=== PATIENT | female | born 1935 | race Caucasian/White ===

== ENCOUNTER 2017-03-08 14:17 | Observation (INO) | payer OTHER ==
[~2017-03-08] VITALS: Ht 157.5 cm; Wt 58.5 kg
--- NOTE | ~2017-03-08 | EKG ---
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
[~2017-03-08 14:17] MED LIST: ADVAIR 250-501 EACH INH; ALPRAZOLAM 0.0.25 M1 PO; CLORAZEPATE DI7.5 M1 PO; ENALAPRIL MALEA10 M1 PO; FLONASE 0.05%50 MCG INH; LEVOTHYROXIN0.025 MG; NIFEDIPINE ER60 M1 PO; NORCO 5-325 TA1 EACH PO; NORFLEX100 MG PO; PAROXETINE HCL20 MG PO; PROAIR HFA8.5 GM; PROPRANOLOL 20M20 M1 PO; TRAVATAN Z5 ML; XOPENEX1.25 MG/3
[2017-03-08 14:23] VITALS: BP 218/76
[2017-03-08 14:52] LABS: ABSOLUTE NEUTROPHILS 5.4 thou/uL (1.4-8.2); BASOPHILS 0.6 % (0.0-2.0); HEMATOCRIT 42.7 % (37.0-47.0); HEMOGLOBIN 14.7 gm/dL (12.0-15.0); LYMPHOCYTES 21.9 % (24.0-44.0); MANUAL DIFF NO; MCH 31.2 pg (26.0-34.0); MCHC 34.4 g/dL (28.0-37.0); MCV 90.7 fL (80.0-100.0); PLATELET COUNT 217 thou/uL (150-400); POLYS 69.5 % (36.0-66.0); RBC 4.71 mil/uL (4.20-5.00); RDW 13.5 % (10.5-14.5); WBC 7.8 thou/uL (4.0-11.0)
[2017-03-08] MEDS ORDERED: ASPIRIN325 PO (15:09)
[2017-03-08] MEDS ORDERED: CALCIUM 600 +1 EAC1 PO (15:11)
[2017-03-08] MEDS ORDERED: MUCINEX TA600 MG/TA2 PO (15:12)
[2017-03-08] MEDS ORDERED: PRIMIDONE50 MG PO (15:12)
[2017-03-08] MEDS ORDERED: PRAVACHOL40 MG PO (15:12)
[2017-03-08] MEDS ORDERED: SPIRIVA INH (15:13)
[2017-03-08 15:15] LABS: ALBUMIN 3.8 g/dL (3.4-5.0); ALKALINE PHOSPHATASE 110 U/L (46-116); ANION GAP 6 mmol/L (7-16); BUN 14 mg/dL (7-18); CALCIUM 9.9 mg/dL (8.5-10.1); CHLORIDE 101 mmol/L (98-107); CO2 32 mmol/L (21-32); CREATININE 0.7 mg/dL (0.6-1.0); GLUCOSE 79 mg/dL (74-106); POTASSIUM 3.5 mmol/L (3.5-5.1); SGOT 34 U/L (15-37); SGPT 30 U/L (30-65); SODIUM 139 mmol/L (136-145); TOTAL BILIRUBIN 0.5 mg/dL (<0.1-1.0); TOTAL PROTEIN 7.1 g/dL (6.4-8.2); TROPONIN-I < 0.04 ng/mL (<0.04-0.07)
[2017-03-08 17:48] VITALS: BP 140/47
[2017-03-08 18:53] VITALS: BP 166/67
[2017-03-08 20:00] VITALS: BP 147/50
[2017-03-09] VITALS: BP 166/53
[2017-03-09] MEDS ORDERED: XALATAN2.5 ML OPHTHALMIC (02:09)
[2017-03-09] MEDS ORDERED: ALBUTEROL INH (02:13)
[2017-03-09 04:00] VITALS: BP 172/54
[2017-03-09 05:42] LABS: HEMATOCRIT 37.7 % (37.0-47.0); HEMOGLOBIN 13.1 gm/dL (12.0-15.0); MCH 31.5 pg (26.0-34.0); MCHC 34.7 g/dL (28.0-37.0); MCV 90.7 fL (80.0-100.0); RBC 4.16 mil/uL (4.20-5.00); RDW 13.7 % (10.5-14.5); WBC 5.2 thou/uL (4.0-11.0)
[2017-03-09 05:44] LABS: CALCIUM 9.2 mg/dL (8.5-10.1); CREATININE 0.7 mg/dL (0.6-1.0); POTASSIUM 3.1 mmol/L (3.5-5.1)
[2017-03-09 07:52] VITALS: BP 142/51
[2017-03-09 08:34] VITALS: BP 128/49
[2017-03-09 13:04] VITALS: BP 128/49
== END 2017-03-09 13:30 | disposition home or self-care (01) ==
LOC: EROBS 17:03 → 3N 18:45
PROVIDERS: Hospitalist; Physician Assistant
DX: I16.0 Hypertensive urgency (principal); J44.9 Chronic obstructive pulmonary disease, unspecified; E78.5 Hyperlipidemia, unspecified; E03.9 Hypothyroidism, unspecified; R42 Dizziness and giddiness; F41.9 Anxiety disorder, unspecified; M19.90 Unspecified osteoarthritis, unspecified site; G25.0 Essential tremor; Z72.0 Tobacco use
CPT/HCPCS: 23019; 23031

== ENCOUNTER 2017-03-22 15:29 | Inpatient (IN) | payer OTHER ==
[~2017-03-22] VITALS: Ht 157.5 cm; Wt 57.2 kg
--- NOTE | ~2017-03-22 | HC ---
[facility] [place] [address] CONSULTATION Name: ALVA REGALADO Room #: 304-P [facility] IN M.R.#: [id number] Admission: 03/22/17 Attend Phys: Agustin Coronel MD Discharge: Date of : 35 Report #: [id number] THIS REPORT FOR: //name// CC: Agustin Coronel Talat Akkulugari DATE OF SERVICE: 03/24/2017 DATE OF SERVICE: 03/24/2017. REASON FOR CONSULTATION: Possible exacerbation of chronic obstructive pulmonary disease. IMPRESSION: 1. Possible exacerbation of chronic obstructive pulmonary disease. 2. Question congestive heart failure. 3. Hyponatremia. 4. Hypertension. 5. Tobacco use. 6. Tremor. 7. History of hypothyroidism. PLAN: Agree with current therapy. We will check labs. We will check echocardiogram, may consider evaluation for obstructive sleep apnea. We will follow closely with you. Dr. Painter will follow up with her tomorrow as her name was given by her new primary. HISTORY OF PRESENT ILLNESS: An 81-year-old female, admitted with headache and weakness and found to have a sodium of 121, treated with IV fluids, that improved; however, has developed shortness of breath since that time and wheeze. She denies aspiration. She denies fever, chills or sweats. PAST MEDICAL HISTORY: ALLERGIES: Seasonal and to some foods. PAST SURGICAL HISTORY: Cataract surgery, fusion L1-L3 secondary to fall in 1970s, hysterectomy, left breast surgery. FAMILY HISTORY: Positive for tremor, no early chronic obstructive pulmonary disease. SOCIAL HISTORY: Positive tobacco. 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 She was a at a young age. [facility] [address] [place] [address] CONSULTATION Name: ALVA REGALADO Room #: 304-P [facility] IN .R.#: [id number] Admission: 03/22/17 Attend Phys: Agustin Coronel MD Discharge: Date of : 35 Report #: [id number] REVIEW OF SYSTEMS: Positive headache, dizziness, weakness, hypertension, history of asthma, as a child, has been worked up for sleep apnea, cannot breath well through her nose, has been on 3 liters oxygen, does have some insomnia. 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 Denies jamel dysuria. ALLERGIES TO ADHESIVES, CAFFEINE, EPHEDRINE, MENTHOL AND NICOTINE PATCH. MEDICATIONS: Included alprazolam, clorazepate, , potassium, hydrochlorothiazide, levothyroxine, albuterol, Xopenex, paroxetine, nifedipine, propranolol, fluticasone, Advair 250, Caltrate, Mucinex, Pravachol, primidone. PHYSICAL EXAMINATION: VITAL SIGNS: Temperature 98, pulse 60, respirations 22, blood pressure 152/66. EYES: Negative icterus. NECK: Negative JVD. LUNGS: Showed wheeze bilaterally. HEART: Regular. ABDOMEN: Bowel sounds present. EXTREMITIES: Showed no cyanosis or edema. Moves all extremities. LABORATORY DATA: Urine culture negative thus far, BUN 9, creatinine 0.5, glucose 130, sodium 133 up from 121. Albumin 2.9. White cell count 5.7, hemoglobin 13.5, platelets 225. A pH 7.38, pCO2 of 52, pO2 82 on 3 liters. Chest x-ray on 03/22/2017 showed no acute. She was also in hospital 03/2017 with tunnel vision, headache and hypertension. CT of head on 03/08/2017 showed no acute venous Dopplers at that time, showed no evidence clot on left. EKG on the 03/22/2017 showed sinus rhythm, borderline prolong [place], probable left atrial enlargement, left anterior fascicular block, probable anteroseptal infarct old. We will follow closely with you. By: 1107 1422 Georgia Don MD /nt
--- NOTE | ~2017-03-22 | HC ---
[facility] [place] [address] CONSULTATION Name: ALVA REGALADO Room #: 304-P [facility] IN M.R.#: [id number] Admission: 03/22/17 Attend Phys: Agustin Coronel MD Discharge: Date of : 35 Report #: [id number] THIS REPORT FOR: //name// CC: Agustin Coronel Talat Akkulugari DATE OF SERVICE: 03/25/2017 HISTORY OF PRESENT ILLNESS: The patient is an 81-year-old white female who was admitted with weakness, loss of balance, polyuria, increased shortness of breath. She was noted to have a COPD exacerbation with chronic respiratory failure and question of congestive heart failure. Pulmonary Medicine has been involved. She has been started on Solu-Medrol. She has alprazolam ordered p.r.n. We are seeing her in rehabilitation medicine consultation. She does have medical complexity with generalized debilitation. PAST MEDICAL HISTORY: Essential tremor, COPD, hypertension, degenerative arthritis, atrial fibrillation, tobaccoism. She is noted to have blind spot in her right eye, spinal injury from a fall with fusion of L1 through L3 in the 1970s, paroxysmal atrial fibrillation, and anxiety. MEDICATIONS: Please see the full medication listing. ALLERGIES: Caffeine, ephedrine, menthol and there is an allergy for nicotine patches. FAMILY HISTORY: Noncontributory. HABITS: Continued every day smoker, history of alcohol on special occasions. REVIEW OF SYSTEMS: Did not offer any current complaints of chest pain, shortness of breath or abdominal discomfort. No focal extremity pain complaints. Complains of overall generalized weakness. No shortness of breath with activity. SOCIAL HISTORY: Lives alone. There are 9 steps in or if she comes in through there are 20 steps. She does have children that are in the area. She did not utilize gait aids, but had her oxygen at home. She notes she only ambulate short distances premorbidly. PHYSICAL EXAMINATION: GENERAL: An 81-year-old white female of rather slender built, in no obvious distress. VITAL SIGNS: Last recorded temperature is 98.4, pulse 69, respirations 18, blood pressure 164/52. She is alert, pleasant. HEENT: Appeared to be benign. [facility] [address] [place] [address] CONSULTATION Name: ALVA REGALADO Room #: 304-P [facility] IN ..#: [id number] Admission: 03/22/17 Attend Phys: Agustin Coronel MD Discharge: Date of : 35 Report #: [id number] NEUROLOGIC: Cranial nerves are grossly intact. Facies are symmetric. She has functional range of motion of both upper extremities with strength of grade 4 to 4-/5. DTRs are trace to 1. In the lower extremities, there is no focal calf swelling, functional range of motion with strength of grade 4-/5. DTRs are trace to 1. She does have an essential tremor which appears relatively mild of her upper extremities and head. ASSESSMENT: An 81-year-old white female with the following problem list, 1. Pulmonary rehabilitation. 2. Medical complexity with generalized debilitation. 3. Chronic obstructive pulmonary disease exacerbation. She is on IV Solu-Medrol, bronchodilators. Pulmonary medicine is involved. 4. Electrolyte abnormalities. 5. Hypertension. 6. History of tobaccoism. PLAN: Therapies are continuing to work with her on her functional mobility and ADLs. We are considering her for a potential acute in-hospital inpatient rehabilitation stay. Depending upon how she does. We will add occupational therapy orders. We will be glad to follow along with you regarding her rehab therapy needs. By: 1013 0000 Bari Mcduffie MD /
--- NOTE | ~2017-03-22 | 2DMMODE ---
[facility] [address] [place] [address] 2 D/M-MODE ECHOCARDIOGRAM Name: ALVA REGALADO Room #: 304-P [facility] IN .R.#: [id number] Admission: 03/22/17 Attend Phys: Catarino Tavera Discharge: Date of : 35 Date of Service: 03/25/17 1033 Report #: [id number] THIS REPORT FOR: //name// APPROVED REPORT Study performed: 03/25/2017 09:20:17 EXAM: Comprehensive 2D, Doppler, and color-flow Echocardiogram Patient Location: Bedside Room #: [facility] Status: routine BSA: 1.57 BP: 184/58 mmHg Other Information Study Quality: Good Indications COPD Atrial Fibrillation Hypertension/HDD 2D Dimensions RVDd: 29.31 mm LVEF(%): 73.38 (>50%) IVSd: 12.17 (7-11mm) LVOT Diam: 18.58 (18-24mm) LVDd: 45.59 mm PWd: 12.01 (7-11mm) Ascending Ao: 25.75 (22-36mm) LVDs: 26.32 (25-40mm) Aortic Root: 27.53 mm IVC: 18.00 mm London's LVEF: 73.38 % Volumes Left Atrial Volume (Systole) Single Plane 4CH: 68.69 mL Single Plane 2CH: 47.64 mL LA ESV Index: 38.00 mL/m2 Aortic Valve AoV Peak Favian.: 1.44 m/s AO Peak Gr.: 8.30 mmHg LVOT Max P.84 mmHg LVOT Max V: 1.10 m/s MOISE Vmax: 2.07 cm2 Mitral Valve E/A Ratio: 0.8 [facility] [address] [address] 2 D/M-MODE ECHOCARDIOGRAM Name: SABINEALVA M Room #: 304-[facility] IN ..#: [id number] Admission: 03/22/17 Attend Phys: Catarino Tavera Discharge: Date of : 35 Date of Service: 03/25/17 1033 Report #: [id number] Decel. Time: 324.11 ms MV E Max Favian.: 1.04 m/s MV A Favian.: 1.33 m/s MV PHT: 93.99 ms IVRT: 96.89 ms Pulmonary Valve PV Peak Favian.: 1.16 m/s PV Peak Gr.: 5.43 mmHg Pulmonary Vein P Vein S: 1.12 m/s P Vein A: 0.28 m/s P Vein D: 0.49 m/s P Vein A Dur.: 110.7 msec P Vein S/D Ratio: 2.29 Tricuspid Valve RAP Estimate: 5.00 mmHg Left Ventricle The left ventricle is normal size. There is normal LV segmental wall motion. Mild concentric left ventricular hypertrophy. The left ventricular systolic function is normal. The left ventricular ejection fraction is within the normal range. LVEF is 60-65%. Mild diastolic dysfunction is present (impaired relaxation pattern). Right Ventricle The right ventricle is normal size. The right ventricular systolic function is normal. Atria Left atrium is dilated. The right atrium size is normal. Aortic Valve Trileaflet aortic vavle, mildly sclerotic No aortic regurgitation is present. There is no aortic valvular stenosis. Mitral Valve Moderate mitral annular calcification. Trace mitral regurgitation. No evidence of mitral valve stenosis. Tricuspid Valve The tricuspid valve is normal in structure. There is trace tricuspid regurgitation. The right atrial pressure is estimated at 5 mmHg. Unable to assess PA pressure. Pulmonic Valve [address] [address] 2 D/M-MODE ECHOCARDIOGRAM Name: ALVA REGALADO Room #: 304-P [facility] IN [facility].#: [id number] Admission: 03/22/17 Attend Phys: Catarino Tavera Discharge: Date of : 35 Date of Service: 03/25/17 1033 Report #: [id number] The pulmonary valve is normal in structure. There is no pulmonic valvular regurgitation. Great Vessels The aortic root is normal in size. IVC is normal in size and collapses >50% with inspiration. Pericardium Trace pericardial effusion is noted. No echo indications of pericardial tamponade. <Conclusion> The left ventricular systolic function is normal. There is normal LV segmental wall motion. LVEF is 60-65%. Mild diastolic dysfunction is present (impaired relaxation pattern). Trileaflet aortic vavle, mildly sclerotic. No aortic valvular stenosis or insufficiency Moderate mitral annular calcification. Trace mitral regurgitation. Pulmonary artery pressure could not be reliably ascertained Trace pericardial effusion is noted. <ELECTRONICALLY SIGNED> By: Farhad Bear MD, [facility] 03/25/17 1033 1033 1033 Farhad Bear MD, FAC /INF
--- NOTE | ~2017-03-22 | EKG ---
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: RODOLFO : 1935 Requested By: Huy Quijano Order Number: [id number] MD: Farhad Bear Measurements Intervals [place] Rate: 75 P: 84 [place]: 214 QRS: -70 QRSD: 80 T: 86 QT: 421 QTc: 471 Interpretive Statements Sinus rhythm Borderline prolonged IN interval Left anterior fascicular block Poor R wave progression Nonspecific ST and T wave abnormality Compared to ECG 03/08/2017 14:58:23 No significant change was found Electronically Signed On 03-24-2017 11:57:00 CDT by Farhad Bear [email or web address] <ELECTRONICALLY SIGNED> By: Farhad Bear MD, [facility] 03/24/17 1157 1540 1540 Farhad Bear MD, [facility] /EPI
[2017-03-22 15:29] VITALS: BP 158/62
[~2017-03-22 15:29] MED LIST changes: +ALBUTEROL INH; +ASPIRIN325 PO; +CALCIUM 600 +1 EAC1 PO; +MUCINEX TA600 MG/TA2 PO; +PRAVACHOL40 MG PO; +PRIMIDONE50 MG PO; +SPIRIVA INH; +XALATAN2.5 ML OPHTHALMIC
[2017-03-22 15:50] LABS: ABSOLUTE NEUTROPHILS 5.4 thou/uL (1.4-8.2); BASOPHILS 0.5 % (0.0-2.0); EOSINOPHILS 1.1 % (0.0-3.0); HEMATOCRIT 42.1 % (37.0-47.0); HEMOGLOBIN 15.2 gm/dL (12.0-15.0); LYMPHOCYTES 20.8 % (24.0-44.0); MCH 31.4 pg (26.0-34.0); MCV 87.3 fL (80.0-100.0); MONOCYTES 6.4 % (1.0-8.0); PLATELET COUNT 255 thou/uL (150-400); POLYS 71.2 % (36.0-66.0); RBC 4.82 mil/uL (4.20-5.00); RDW 13.3 % (10.5-14.5); WBC 7.6 thou/uL (4.0-11.0)
[2017-03-22 15:51] LABS: MANUAL DIFF NO
[2017-03-22 16:03] LABS: ANION GAP 3 mmol/L (7-16); BUN 11 mg/dL (7-18); CALCIUM 9.8 mg/dL (8.5-10.1); CHLORIDE 84 mmol/L (98-107); CO2 34 mmol/L (21-32); CREATININE 0.6 mg/dL (0.6-1.0); GLUCOSE 115 mg/dL (74-106); SODIUM 121 mmol/L (136-145)
[2017-03-22 16:08] LABS: ALBUMIN 3.7 g/dL (3.4-5.0); ALKALINE PHOSPHATASE 105 U/L (46-116); SGOT 32 U/L (15-37); SGPT 26 U/L (30-65); TOTAL BILIRUBIN 0.6 mg/dL (<0.1-1.0); TOTAL PROTEIN 6.9 g/dL (6.4-8.2); TROPONIN-I < 0.04 ng/mL (<0.04-0.07)
[2017-03-22 16:11] LABS: URINE BILIRUBIN NEGATIVE (Negative); URINE BLOOD NEGATIVE (Negative); URINE COLOR YELLOW; URINE GLUCOSE-RANDOM* NEGATIVE (Negative); URINE KETONES NEGATIVE (Negative); URINE LEUKOCYTES-REFLEX TRACE (Negative); URINE PROTEIN (DIPSTICK) TRACE (Negative); URINE UROBILINOGEN 0.2 E.U./dl (0.2-1.0)
[2017-03-22 16:57] LABS: ABG SAMPLE TYPE ARTERIAL; BE(vivo) 4.2 mmol/L (-2 to +3); HCO3 30.6 mmol/L (22.0-26.0); LACTATE 0.68 mmol/L (0.5-2.0); O2(CT) 20.2 mL/dL (15.0-23.0); O2Hb 89.5 % (92.0-98.0); PCO2 52.5 mmHg (35.0-45.0); PO2 82.3 mmHg (80.0-100.0); pH 7.384 (7.360-7.450); sO2 95.8 % (92.0-98.0); tCO2 32.3 mmol/L (24.0-30.0)
[2017-03-22 16:58] LABS: STICK SITE R.RADIAL
[2017-03-22 17:35] VITALS: BP 173/58
[2017-03-22 18:38] VITALS: BP 184/49
[2017-03-22 18:43] LABS: URINE BILIRUBIN NEGATIVE (Negative); URINE BLOOD NEGATIVE (Negative); URINE COLOR YELLOW; URINE GLUCOSE-RANDOM* NEGATIVE (Negative); URINE KETONES NEGATIVE (Negative); URINE NITRITE NEGATIVE (Negative); URINE PROTEIN (DIPSTICK) NEGATIVE (Negative); URINE SPECIFIC GRAVITY <= 1.005 (1.003-1.035); URINE UROBILINOGEN 0.2 E.U./dl (0.2-1.0)
[2017-03-22 19:00] VITALS: BP 206/70
[2017-03-22 19:40] VITALS: BP 174/61
[2017-03-22 23:40] VITALS: BP 148/57
[2017-03-23 04:00] VITALS: BP 156/59
[2017-03-23 04:22] LABS: HEMATOCRIT 38.9 % (37.0-47.0); HEMOGLOBIN 13.5 gm/dL (12.0-15.0); MCHC 34.8 g/dL (28.0-37.0); RBC 4.37 mil/uL (4.20-5.00); RDW 13.3 % (10.5-14.5); WBC 5.7 thou/uL (4.0-11.0)
[2017-03-23 04:37] LABS: ALBUMIN 2.9 g/dL (3.4-5.0); CALCIUM 8.6 mg/dL (8.5-10.1); CREATININE 0.5 mg/dL (0.6-1.0); POTASSIUM 3.3 mmol/L (3.5-5.1); TOTAL BILIRUBIN 0.4 mg/dL (<0.1-1.0); TOTAL PROTEIN 5.7 g/dL (6.4-8.2)
[2017-03-23] MEDS ORDERED: K-DUR 20 MEQ T20 MEQ PO (05:54)
[2017-03-23] MEDS ORDERED: HYDROCHLOROTHIA25 M2 PO (05:55)
[2017-03-23 08:00] VITALS: BP 167/60
[2017-03-23 16:00] VITALS: BP 183/51
[2017-03-23 19:07] VITALS: BP 167/70
[2017-03-23 23:45] VITALS: BP 183/59
[2017-03-24 00:50] VITALS: BP 183/56
[2017-03-24 03:51] VITALS: BP 180/68
[2017-03-24 04:41] LABS: CALCIUM 8.9 mg/dL (8.5-10.1); CREATININE 0.6 mg/dL (0.6-1.0); POTASSIUM 3.9 mmol/L (3.5-5.1)
[2017-03-24 08:04] VITALS: BP 152/66
[2017-03-24 19:10] VITALS: BP 149/62
[2017-03-25 04:08] VITALS: BP 184/58
[2017-03-25 08:00] VITALS: BP 164/52
[2017-03-25 15:46] VITALS: BP 157/55
[2017-03-25 19:55] VITALS: BP 145/60
[2017-03-26 03:50] VITALS: BP 182/51
[2017-03-26 04:22] LABS: HEMATOCRIT 40.1 % (37.0-47.0); HEMOGLOBIN 13.6 gm/dL (12.0-15.0); MCH 30.8 pg (26.0-34.0); MCHC 33.9 g/dL (28.0-37.0); MCV 90.9 fL (80.0-100.0); RBC 4.42 mil/uL (4.20-5.00); RDW 13.3 % (10.5-14.5); WBC 8.4 thou/uL (4.0-11.0)
[2017-03-26 04:36] LABS: CALCIUM 9.4 mg/dL (8.5-10.1); CREATININE 0.6 mg/dL (0.6-1.0); POTASSIUM 3.8 mmol/L (3.5-5.1)
[2017-03-26 07:40] VITALS: BP 172/70
[2017-03-26 17:30] VITALS: BP 159/63
== END 2017-03-26 19:48 | DRG 189 ==
LOC: ER 15:29 → EROBS 17:25 → 3N 17:25
PROVIDERS: Family Medicine; Internal Medicine Pulmonary Disease; Physician Assistant
DX: J96.21 Acute and chronic respiratory failure with hypoxia (principal); J44.1 Chronic obstructive pulmonary disease with (acute) exacerbation; E87.1 Hypo-osmolality and hyponatremia; F41.9 Anxiety disorder, unspecified; M19.90 Unspecified osteoarthritis, unspecified site; E03.9 Hypothyroidism, unspecified; H54.41 Blindness, right eye, normal vision left eye; Z96.1 Presence of intraocular lens; I48.0 Paroxysmal atrial fibrillation; I10 Essential (primary) hypertension; E86.0 Dehydration; E87.8 Other disorders of electrolyte and fluid balance, not elsewhere classified; F17.210 Nicotine dependence, cigarettes, uncomplicated; E87.6 Hypokalemia; J96.22 Acute and chronic respiratory failure with hypercapnia; Z98.42 Cataract extraction status, left eye; Z98.41 Cataract extraction status, right eye; Z79.899 Other long term (current) drug therapy; Z88.8 Allergy status to other drugs, medicaments and biological substances; Z91.09 Other allergy status, other than to drugs and biological substances; Z98.1 Arthrodesis status; Z71.6 Tobacco abuse counseling
CPT/HCPCS: 10096

== ENCOUNTER 2017-03-26 15:15 | Inpatient (IN) | payer OTHER ==
[~2017-03-26] VITALS: Ht 157.5 cm; Wt 59.8 kg
--- NOTE | ~2017-03-26 | EKG ---
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: shaquille : 1935 Requested By: Carey Cloud Order Number: [id number] MD: Farhad Bear Measurements Intervals [place] Rate: 66 P: 80 [place]: 226 QRS: -68 QRSD: 77 T: 72 QT: 425 QTc: 446 Interpretive Statements Sinus rhythm Atrial premature complex Prolonged NC interval Left anterior fascicular block Possible septal infarct, old Compared to ECG 03/22/2017 15:40:26 Atrial premature complex(es) now present Electronically Signed On 04-02-2017 8:50:48 CDT by Farhad Bear [email or web address] <ELECTRONICALLY SIGNED> By: Farhad Bear MD, [facility] 04/02/17 0850 0602 0602 Farhad Bear MD, [facility] /EPI
--- NOTE | ~2017-03-26 | H ---
[facility] [place] [address] HISTORY AND PHYSICAL Name: ALVA REGALADO Room #: 510-P ADM IN M.R.#: [id number] Admission: 03/26/17 Attend Phys: Bari Mcduffie MD Discharge: Date of : 35 Report #: [id number] THIS REPORT FOR: //name// CC: Bari Mcduffie Talat Akkulugari DATE OF SERVICE: 03/26/2017 HISTORY AND PHYSICAL/POST-ADMISSION AND PHYSICIAN EVALUATION HISTORY OF PRESENT ILLNESS: The patient is an 81-year-old white female who was originally admitted to [facility] with weakness, loss of balance, polyuria, increased shortness of breath. She was noted to have COPD exacerbation with chronic respiratory failure and question of congestive heart failure. Pulmonary Medicine was involved. She was started on IV Solu-Medrol. She had alprazolam ordered p.r.n. She was noted to have medical complexity with generalized debilitation, pulmonary rehabilitation needs, and close Pulmonary Medicine involvement. She has had a significant decline in her premorbid functional abilities. She has now been admitted for acute in-hospital inpatient rehabilitation. PAST MEDICAL HISTORY: Includes essential tremor, COPD, hypertension, degenerative arthritis, atrial fibrillation, tobaccoism. She is noted to have a blind spot in her right eye, spinal injury from a fall with fusion of L1 through L3 in the 1970s, paroxysmal atrial fibrillation and anxiety. MEDICATIONS: Please see the full medication listing. Each of these was individually reconciled upon her admission. They include any supplements, vitamins than she takes. ALLERGIES: CAFFEINE, EPHEDRINE, MENTHOL AND THERE IS AN ALLERGY FOR NICOTINE PATCHES. FAMILY HISTORY: Noncontributory. HABITS: Continued every day smoker, history of alcohol on special occasions. REVIEW OF SYSTEMS: No current complaints of chest pain, shortness of breath, abdominal discomfort. No focal extremity pain complaints. She does note some constipation and notes she has not had a bowel movement since last . SOCIAL HISTORY: Lives alone. There are 9 steps in or if she comes in from the garage, there are 20 steps in. She does have children that are in the area. She did not utilize gait aids, but had oxygen at home. She did only ambulate short distances premorbidly. [address] [address] HISTORY AND PHYSICAL Name: ALVA REGALADO Room #: 510-P [facility] IN .R.#: [id number] Admission: 03/26/17 Attend Phys: Bari Mcduffie MD Discharge: Date of : 35 Report #: [id number] PHYSICAL EXAMINATION: GENERAL: An 81-year-old white female, rather slender built, in no obvious distress. The patient is in no distress. VITAL SIGNS: Stable. Last recorded temperature is 98.6, pulse 65, respirations 20, blood pressure 192/74. HEENT: Appeared to be benign. Cranial nerves grossly intact. Facies are symmetric. CHEST: Some decreased breath sounds throughout. CARDIOVASCULAR: Sounded regular rate and rhythm. ABDOMEN: Bowel sounds positive, nontender. GENITOURINARY AND RECTAL: Deferred. EXTREMITIES: Functional range of motion of both upper extremities with strength grade 4 to 4-/5. DTRs are trace to 1. In the lower extremities, there is no focal calf swelling, functional range of motion with strength grade 4-/5. DTRs are trace to 1. She has an essential tremor relatively mild of the upper extremities and head. Functionally, she has been min assist with basic transfers, min assist for short distance ambulation. ASSESSMENT: 1. Pulmonary rehabilitation. 2. Medical complexity with generalized debilitation. 3. Chronic obstructive pulmonary disease exacerbation. She has been on IV Solu-Medrol and bronchodilators with Pulmonary Medicine involved. 4. Electrolyte abnormalities. 5. Hypertension. 6. History of tobaccoism. PLAN: The patient is admitted for acute in-hospital inpatient rehabilitation. From a post-admission physician evaluation perspective, there are no relevant changes since the preadmission screening. Please see the above review of prior and current medical and functional conditions and comorbidities. Please see the patient's prior and current functional status. As far as risk of complications, she has the multiple medical comorbidities as noted above. Initial plan of care involves the interdisciplinary acute inpatient rehabilitation program with the goal of maximizing the patient's functional independence so that she can hopefully return back to her prior living situation. Measurable functional goals would be for her to become modified independent at least at the walker level with mobility and ADLs and do her overall endurance. She also needs to improve as far as her medical and pulmonary stability. DIAGNOSES: Includes the pulmonary rehabilitation and medical complexity with generalized debilitation. She meets the rehab diagnostic criteria and has a length of stay of probably 10 days to 2 weeks pending progress. She may be able to go home prior to then depending upon how she does. Potential barriers would include her multiple medical comorbidities and decreased functional status. [facility] [address] [place] [address] HISTORY AND PHYSICAL Name: ALVA REGALADO Room #: 510-P [facility] IN [facility].#: [id number] Admission: 03/26/17 Attend Phys: Bari Mcduffie MD Discharge: Date of : 35 Report #: [id number] The patient meets diagnostic criteria. She meets medical necessity criteria for an acute inpatient rehabilitation stay. She does have the tolerance for therapies and has appropriate discharge goals back to the home setting. By: 0939 1004 Bari Mcduffie MD /
--- NOTE | ~2017-03-26 | HC ---
[facility] [place] [address] CONSULTATION Name: ALVA REGALADO Room #: 501-A [facility] IN ..#: [id number] Admission: 03/26/17 Attend Phys: Bari Mcduffie MD Discharge: 04/02/17 Date of : 35 Report #: [id number] THIS REPORT FOR: //name// CC: Bari Mcduffie Talat Akkulugari DATE OF SERVICE: 03/30/2017 ATTENDING PHYSICIAN: Bari Mcduffie M.D. VIOLIN TEACHER: Néstor Berman, Ph.D. CLINICAL PRESENTATION: The patient is an 81-year-old female admitted to [facility] for comprehensive inpatient rehabilitation program to improve functional mobility and activities of daily living and self-care and mental status secondary to deficits from medical complexity and generalized debilitation. Her diagnoses include COPD, electrolyte abnormalities, hypertension and a history of tobacco abuse. She was living independently in her own home when she developed the loss of balance and required hospitalization. The patient has had very high blood pressure, and alprazolam is ordered to assist her in the management. A complete description of her medical condition and history along with medications can be found in her medical records. Neuropsychological consultation was requested to provide assistance in the assessment of cognitive and emotional status and to provide recommendations and services. Prior to this most recent admission, she was living independently in her own home. The patient has 3 children. 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 She was independent with instrumental activities of daily living. The patient was driving but with decreased frequency. 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 TECHNIQUES UTILIZED: Clinical interview, review of medical records, staff consultation and behavioral observation, mini mental status exam 2 standard version, clock drawing and calibrated ideational fluency assessment (category fluency). EXAMINATION FINDINGS: The patient was alert and cooperative with the assessment. She accurately described events surrounding her admission. There is no evidence of aphasia. Her thoughts are logical and goal oriented. There is no evidence of thought disorder. She does not describe auditory or visual hallucinations. She describes her symptoms to include difficulty with sleep and appetite. A longstanding history of anxiety is reported. Prior alcohol use was minimal. [facility] [address] [place] [address] CONSULTATION Name: ALVA REGALADO Room #: 501-A [facility] IN [facility].#: [id number] Admission: 03/26/17 Attend Phys: Bari Mcduffie MD Discharge: 04/02/17 Date of : 35 Report #: [id number] Her symptoms are primarily associated with sleep, appetite and anxiety. She does not report difficulty with depression or cognitive functioning. Her performance on the MMSE 2 brief version is within normal limits with a raw score of 14-16 and T score of 45. Her MMSE 2 standard version is within normal limits with a raw score of 25-30 and a T score of 44. The patient was able to draw a clock and set the hands at a designated time. However, she is presenting with diminished visual spatial construction. Her performance on category fluency was within normal limits with a raw score of 31 and a T score of 45. The patient is showing primarily difficulty with sustained attention and concentration, and variability in memory. DIAGNOSTIC IMPRESSION: Mild neurocognitive disorder, unspecified, without behavior disorder. Generalized anxiety disorder. RECOMMENDATIONS: The patient would benefit from continued assistance with the management of instrumental activities of daily living. Decreasing environmental demands will likely improve overall functioning. She has a supportive family. The use of relaxation techniques would also be of benefit to address the issues of heightened anxiety. Thank you very much for allowing me to provide the consultation on this patient. <ELECTRONICALLY SIGNED> By: Néstor Berman, PhD 04/07/17 1404 [id number] [id number] Néstor Berman, PhD /nt
--- NOTE | ~2017-03-26 | PLAN ---
[facility] [place] [address] REHAB UNIT PLAN OF CARE Name: ALVA REGALADO Room #: 501-A [facility] IN .R.#: [id number] Admission: 03/26/17 Attend Phys: Bari Mcduffie MD Discharge: Date of : 35 Report #: [id number] THIS REPORT FOR: //name// CC: Bari Mcduffie Talat Akkulugari DATE OF SERVICE: 03/29/2017 PROGRESS NOTE AND OVERALL PLAN OF CARE The patient is seen back today in followup. She did have some chest pain earlier this morning, was noted to be given some nitroglycerin per nursing. Was doing fine when I saw her this morning with no further chest pain. Note that a RATS team was called and EKG obtained, nitroglycerin given. When I saw her earlier this morning, she was doing better and did not have any complaints of chest pain. She is on nasal prong O2. Functionally, she has been transferring with standby assistance and is ambulating contact guard 500 feet without an assistive device. She is going up and down 12 steps with contact guard assistance. Lower body dressing is standby assistance. Upper body dressing is supervision. ASSESSMENT: 1. Pulmonary rehabilitation. 2. Episode of chest pain earlier this morning. Apparent angina. Hospitalist/internal medicine involved. No further complaints. 3. Medical complexity with generalized debilitation. 4. Chronic obstructive pulmonary disease exacerbation. 5. Electrolyte abnormalities. 6. Hypertension. 7. History of tobaccoism. PLAN: She is continuing in the inpatient rehabilitation program with current medical management. From an overall plan of care, this is based on the preadmission screen, post-admission physician evaluation and information garnered from therapy assessments. 1. Estimated length of stay is probably quite short. I talked with the therapy team. We are anticipate a tentative discharge os next Saturday. 2. Medical prognosis is reasonably good. 3. Anticipated interventions includes the interdisciplinary acute inpatient rehabilitation program with the goal of maximizing the patient's functional independence, so that she can hopefully return back to her prior living situation. 4. Anticipated functional outcomes would be for the patient to become modified independent with mobility and ADLs. She is currently not needing to utilize gait aids. 5. Discharge destination would be back to the home setting[place] [address] REHAB UNIT PLAN OF CARE Name: ALVA REGALADO Room #: 501-A [facility] IN [facility]#: [id number] Admission: 03/26/17 Attend Phys: Bari Mcduffie MD Discharge: Date of : 35 Report #: [id number] alone. 6. Expected therapy by discipline includes PT and OT 1-1/2 hours per day each 5 days a week throughout the duration of the acute inpatient rehabilitation stay. By: [id number] Bari Mcduffie MD /
[~2017-03-26 15:15] MED LIST changes: +HYDROCHLOROTHIA25 M2 PO; +K-DUR 20 MEQ T20 MEQ PO
[2017-03-26 20:19] VITALS: BP 192/74
[2017-03-26 22:20] VITALS: BP 199/76
[2017-03-26 23:17] VITALS: BP 161/57
[2017-03-26 23:48] VITALS: BP 151/65
[2017-03-27 05:37] VITALS: BP 169/76
[2017-03-27 16:40] VITALS: BP 178/59
[2017-03-28 03:30] VITALS: BP 178/77
[2017-03-28 06:17] VITALS: BP 154/43
[2017-03-28 21:10] VITALS: BP 158/64
[2017-03-29] VITALS (8 sets, daily range): BP systolic 100–193; BP diastolic 32–62
[2017-03-29 12:12] LABS: ABG SAMPLE TYPE ARTERIAL; BE(vivo) 9.3 mmol/L (-2 to +3); HCO3 36.2 mmol/L (22.0-26.0); LACTATE 1.05 mmol/L (0.5-2.0); O2(CT) 19.7 mL/dL (15.0-23.0); O2Hb 96.2 % (92.0-98.0); PCO2 58.3 mmHg (35.0-45.0); PO2 90.5 mmHg (80.0-100.0); STICK SITE R.RADIAL; pH 7.411 (7.360-7.450); sO2 96.8 % (92.0-98.0)
[2017-03-30 03:13] VITALS: BP 183/69
[2017-03-30 07:46] LABS: MCH 30.4 pg (26.0-34.0); MCHC 34.1 g/dL (28.0-37.0); MCV 89.2 fL (80.0-100.0); RBC 4.6 mil/uL (4.20-5.00); RDW 12.9 % (10.5-14.5); WBC 11.6 thou/uL (4.0-11.0)
[2017-03-30 07:52] LABS: CALCIUM 9.9 mg/dL (8.5-10.1); CREATININE 0.7 mg/dL (0.6-1.0); POTASSIUM 4.3 mmol/L (3.5-5.1)
[2017-03-30 16:05] VITALS: BP 154/51
[2017-03-31 06:44] VITALS: BP 179/61
[2017-03-31 16:30] VITALS: BP 173/50
[2017-03-31 22:43] VITALS: BP 161/63
[2017-04-01 05:07] VITALS: BP 159/58
[2017-04-01 16:00] VITALS: BP 155/60
[2017-04-01 20:35] VITALS: BP 153/55
[2017-04-02 06:10] LABS: HEMATOCRIT 39.3 % (37.0-47.0); HEMOGLOBIN 13.7 gm/dL (12.0-15.0); MCH 30.9 pg (26.0-34.0); MCHC 34.8 g/dL (28.0-37.0); MCV 88.8 fL (80.0-100.0); PLATELET COUNT 226 thou/uL (150-400); RBC 4.43 mil/uL (4.20-5.00); RDW 13.1 % (10.5-14.5); WBC 9.5 thou/uL (4.0-11.0)
[2017-04-02 06:14] LABS: MANUAL DIFF YES
[2017-04-02 06:20] VITALS: BP 167/63
[2017-04-02 06:23] LABS: CALCIUM 9.2 mg/dL (8.5-10.1); CREATININE 0.6 mg/dL (0.6-1.0); MAGNESIUM 1.7 mg/dL (1.8-2.4); POTASSIUM 4.2 mmol/L (3.5-5.1)
[2017-04-02 07:29] LABS: HEMATOCRIT 41.6 % (37.0-47.0); HEMOGLOBIN 14.3 gm/dL (12.0-15.0); MCH 30.9 pg (26.0-34.0); MCHC 34.4 g/dL (28.0-37.0); MCV 89.9 fL (80.0-100.0); RBC 4.63 mil/uL (4.20-5.00); RDW 13.1 % (10.5-14.5); WBC 10.7 thou/uL (4.0-11.0)
[2017-04-02 07:39] LABS: CALCIUM 9.8 mg/dL (8.5-10.1); CREATININE 0.6 mg/dL (0.6-1.0); POTASSIUM 4.4 mmol/L (3.5-5.1)
[2017-04-02 08:41] LABS: ABSOLUTE NEUTROPHILS 8.3 thou/uL (1.4-8.2); PLATELET ESTIMATE NORMAL; TOTAL CELL COUNT 100
[2017-04-02] MEDS ORDERED: PREDNISONE 20 M20 MG PO ×2 (10:43→14:48)
[2017-04-02] MEDS ORDERED: PEPCID20 MG PO (11:39)
[2017-04-02] MEDS ORDERED: AUGMENTIN 875875 MG PO ×2 (11:39→11:43)
[2017-04-02 14:26] VITALS: BP 174/59
[2017-04-02 15:28] VITALS: BP 174/59
== END 2017-04-02 16:00 | disposition home health service (06) | DRG 189 ==
PROVIDERS: Internal Medicine Pulmonary Disease; Nurse Practitioner
DX: J96.21 Acute and chronic respiratory failure with hypoxia (principal); J44.1 Chronic obstructive pulmonary disease with (acute) exacerbation; E87.0 Hyperosmolality and hypernatremia; E22.2 Syndrome of inappropriate secretion of antidiuretic hormone; E87.8 Other disorders of electrolyte and fluid balance, not elsewhere classified; I10 Essential (primary) hypertension; G31.84 Mild cognitive impairment of uncertain or unknown etiology; F41.1 Generalized anxiety disorder; M19.90 Unspecified osteoarthritis, unspecified site; I48.91 Unspecified atrial fibrillation; I48.0 Paroxysmal atrial fibrillation; F17.210 Nicotine dependence, cigarettes, uncomplicated; Z60.2 Problems related to living alone; E87.6 Hypokalemia; E86.0 Dehydration; E03.9 Hypothyroidism, unspecified; G47.00 Insomnia, unspecified; J96.22 Acute and chronic respiratory failure with hypercapnia; Z88.8 Allergy status to other drugs, medicaments and biological substances; Z71.6 Tobacco abuse counseling; Z91.041 Radiographic dye allergy status; Z91.09 Other allergy status, other than to drugs and biological substances
CPT/HCPCS: 10112

== ENCOUNTER 2017-05-20 23:12 | Inpatient (IN) | payer OTHER ==
[~2017-05-20] VITALS: Ht 160 cm; Wt 60.4 kg
--- NOTE | ~2017-05-20 | HC ---
[facility] [place] [address] CONSULTATION Name: ALVA REGALADO Room #: 351-P [facility] IN M.R.#: [id number] Admission: 05/21/17 Attend Phys: Elie North DO Discharge: Date of : 35 Report #: [id number] THIS REPORT FOR: //name// CC: Elie North DO Marcos Fonsecam Akkulugari DATE OF SERVICE: 05/21/2017 REFERRING PROVIDER: Elie North MD REASON FOR CONSULTATION: COPD exacerbation. CHIEF COMPLAINT: Weakness. HISTORY OF PRESENT ILLNESS: Our group was asked to see the patient in consultation while hospitalized at [facility], a pleasant 81-year-old woman with a past pulmonary history significant for COPD, had been oxygen requiring for quite some time on 3 liters to 5 liters nasal cannula, most recent FEV1 of 0.65 liters at 37% of predicted, typically on Spiriva inhaler at home with p.r.n. albuterol nebulized and inhaled. Denies any significant cough or chest pain. No sputum production, no fevers or chills, just has been having some increasing weakness and generalized weakness, presented to the Emergency Department with family overnight. Had an elevated white blood cell count and some hyponatremia noted, this prompted admission for further evaluation. Also noted to be hypercapnic but with a stable pH, unfortunately this patient has ongoing tobacco use. ALLERGIES: INCLUDE EPHEDRINE, IODINE, CONTRAST DYE, CAFFEINE, MENTHOL AND NICOTINE PATCH, SOY AND TAPE. PAST MEDICAL HISTORY: 1. History of chronic respiratory failure, on supplemental oxygen. 2. History of anxiety disorder. 3. Osteoarthritis. 4. Atrial fibrillation. 5. Severe COPD as described in HPI. 6. Hypertension. 7. Hypothyroidism. 8. Tremor. OUTPATIENT MEDICATIONS: 1. Albuterol inhaler p.r.n. 2. Aspirin 325 daily. 3. Enalapril 10 mg daily. [facility] [address] [place] [address] CONSULTATION Name: ALVA REGALADO Room #: 351-P [facility] IN ..#: [id number] Admission: 05/21/17 Attend Phys: Elie North DO Discharge: Date of : 35 Report #: [id number] 4. Pepcid 10 mg twice daily. 5. Veramyst nasal spray 2 squirts daily. 6. Advair 250/50 twice daily. 7. Spiriva inhaled once daily. 8. Xalatan eyedrops. 9. Synthroid 0.025 daily. 10. Nifedipine 90 mg daily. 11. Paxil 20 mg daily. 12. Potassium chloride 20 mEq twice daily. 13. Pravachol 40 mg daily. 14. Primidone 50 mg q.i.d. 15. Inderal 20 mg t.i.d. 16. Mucinex 1200 mg twice daily. SOCIAL HISTORY: The patient is an active smoker, no alcohol consumption. Currently, lives with family, tzllgbyd-xp-hfu seems to be most available according to the patient. FAMILY HISTORY: Negative for any significant pulmonary disease. PAST SURGICAL HISTORY: Includes breast lumpectomy, cataract surgery, hysterectomy and spinal fusion. REVIEW OF SYSTEMS: CONSTITUTIONAL: Low grade fever, no chills or sweats. ENT: No upper respiratory congestion, rhinorrhea or dysphagia. CARDIOVASCULAR: No chest pains or palpitations. GASTROINTESTINAL: No nausea, vomiting, diarrhea, constipation or abdominal pain. GENITOURINARY: No dysuria, no frequency. INTEGUMENT: Denies any rash. MUSCULOSKELETAL: No joint pains or swelling. ENDOCRINE: The patient notes a history of electrolyte disturbances including hypomagnesemia, hyponatremia and hypokalemia in the past. PHYSICAL EXAMINATION: VITAL SIGNS: Afebrile, pulse 70s, respiratory rate 18, blood pressure 155/42 and oxygen saturation 92% on 3 liters. GENERAL: This is a thin elderly woman in no distress. EENT: Clear oropharynx. NECK: Supple, no lymphadenopathy. LUNGS: Diminished, prolonged expiratory phase with diffuse expiratory wheezes noted. CARDIOVASCULAR: Heart regular. No murmurs noted. ABDOMEN: Soft, nontender, no masses. EXTREMITIES: With only trace edema. [facility] [address] [place] [address] CONSULTATION Name: ANABELLAJovanJANETHALVA M Room #: 351-P [facility] IN M.R.#: [id number] Admission: 05/21/17 Attend Phys: Elie North DO Discharge: Date of : 35 Report #: [id number] LABORATORY DATA: Chest x-ray revealed significant hyperinflation with no acute cardiopulmonary process or infiltrates. White blood cell count 19,000; hemoglobin 15; hematocrit 43; platelet count 253. Sodium 122, potassium 3.4, chloride 83, bicarbonate 40, BUN 12, creatinine 0.5, glucose 175, magnesium 1.6. Liver enzymes normal, albumin 4.0. IMPRESSION: 1. Ihlvj-fr-edmjolx hypercapnic and hypoxemic respiratory failure. 2. Chronic obstructive pulmonary disease. 3. Generalized weakness, likely related to #1 above and/or electrolyte disturbances. 4. Multiple electrolyte abnormalities include hyponatremia, hypokalemia and hypomagnesemia. SUGGESTIONS: 1. Replace electrolytes. 2. Continue with systemic steroid with taper. 3. Azithromycin. 4. Bronchodilators. 5. Physical and occupational therapy consultation. 6. Additional recommendations to follow. Thank you for requesting our suggestions. By: [id number] Won Rivera MD /nt
--- NOTE | ~2017-05-20 | EKG ---
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 : 1935 Requested By: Kelby Pack Order Number: [id number] MD: Valdo Goldstein Measurements Intervals [place] Rate: 70 P: 82 WV: 195 QRS: -69 QRSD: 93 T: 94 QT: 414 QTc: 447 Interpretive Statements Sinus rhythm Atrial premature complex Probable left atrial enlargement Left anterior fascicular block Abnormal R-wave progression, early transition Probable LVH with secondary repol abnrm Compared to ECG 03/29/2017 06:02:13 First degree AV block no longer present Myocardial infarct finding no longer present Electronically Signed On 05-21-2017 8:11:41 CDT by Valdo Goldstein [email or web address] <ELECTRONICALLY SIGNED> By: Valdo Goldstein MD 05/21/17 0811 36 36 Valdo Goldstein MD /EPI
[~2017-05-20 23:12] MED LIST changes: +AUGMENTIN 875875 MG PO; +PEPCID20 MG PO; +PREDNISONE 20 M20 MG PO
[2017-05-20 23:18] VITALS: BP 203/69
[2017-05-21] VITALS (7 sets, daily range): BP systolic 152–176; BP diastolic 33–80
[2017-05-21 00:09] LABS: HEMATOCRIT 43.4 % (37.0-47.0); HEMOGLOBIN 14.9 gm/dL (12.0-15.0); MCH 30.3 pg (26.0-34.0); MCHC 34.2 g/dL (28.0-37.0); MCV 88.3 fL (80.0-100.0); PLATELET COUNT 253 thou/uL (150-400); RBC 4.91 mil/uL (4.20-5.00); RDW 12.8 % (10.5-14.5); WBC 19.2 thou/uL (4.0-11.0)
[2017-05-21 00:14] LABS: MANUAL DIFF YES
[2017-05-21 00:17] LABS: ANION GAP < 0 mmol/L (7-16); BUN 12 mg/dL (7-18); CALCIUM 10.1 mg/dL (8.5-10.1); CHLORIDE 83 mmol/L (98-107); CO2 40 mmol/L (21-32); CREATININE 0.5 mg/dL (0.6-1.0); GLUCOSE 175 mg/dL (74-106); POTASSIUM 3.4 mmol/L (3.5-5.1); SODIUM 122 mmol/L (136-145)
[2017-05-21 00:21] LABS: ABG SAMPLE TYPE ARTERIAL; HCO3 38.1 mmol/L (22.0-26.0); LACTATE 1.01 mmol/L (0.5-2.0); O2(CT) 20.5 mL/dL (15.0-23.0); O2Hb 92.8 % (92.0-98.0); PO2 80.4 mmHg (80.0-100.0); pH 7.383 (7.360-7.450); sO2 95.3 % (92.0-98.0); tCO2 40.2 mmol/L (24.0-30.0)
[2017-05-21 00:22] LABS: PCO2 65.5 mmHg (35.0-45.0); STICK SITE R.RADIAL
[2017-05-21 00:25] LABS: ALKALINE PHOSPHATASE 105 U/L (46-116); MAGNESIUM 1.6 mg/dL (1.8-2.4); SGOT 32 U/L (15-37); SGPT 27 U/L (30-65); TOTAL BILIRUBIN 0.6 mg/dL (<0.1-1.0); TROPONIN-I < 0.04 ng/mL (<0.04-0.07)
[2017-05-21 01:01] LABS: ABSOLUTE NEUTROPHILS 17.7 thou/uL (1.4-8.2); ATYPICAL LYMPHS 2 %; TOTAL CELL COUNT 100
[2017-05-21 01:27] LABS: URINE BILIRUBIN NEGATIVE (Negative); URINE BLOOD NEGATIVE (Negative); URINE COLOR YELLOW; URINE GLUCOSE-RANDOM* NEGATIVE (Negative); URINE KETONES 1+ (Negative); URINE PROTEIN (DIPSTICK) NEGATIVE (Negative); URINE SPECIFIC GRAVITY 1.015 (1.003-1.035); URINE UROBILINOGEN 0.2 E.U./dl (0.2-1.0)
[2017-05-21 01:44] LABS: URINE LEUKOCYTES-REFLEX TRACE (Negative)
[2017-05-22 03:40] VITALS: BP 175/52
[2017-05-22 06:37] LABS: HEMATOCRIT 35.2 % (37.0-47.0); MCH 30.9 pg (26.0-34.0); MCHC 35.1 g/dL (28.0-37.0); MCV 88.2 fL (80.0-100.0); RBC 3.99 mil/uL (4.20-5.00); RDW 12.9 % (10.5-14.5); WBC 12.7 thou/uL (4.0-11.0)
[2017-05-22 06:38] LABS: HEMOGLOBIN 12.3 gm/dL (12.0-15.0)
[2017-05-22 06:49] LABS: CALCIUM 9.1 mg/dL (8.5-10.1); CREATININE 0.5 mg/dL (0.6-1.0); MAGNESIUM 1.7 mg/dL (1.8-2.4); POTASSIUM 3.3 mmol/L (3.5-5.1)
[2017-05-22 07:28] VITALS: BP 165/45
[2017-05-22 13:47] VITALS: BP 167/55
[2017-05-22 17:48] VITALS: BP 186/71
[2017-05-22 19:22] VITALS: BP 129/65
[2017-05-23 04:34] VITALS: BP 170/52
[2017-05-23 06:20] LABS: ABSOLUTE NEUTROPHILS 8.5 thou/uL (1.4-8.2); BASOPHILS 0.2 % (0.0-2.0); HEMATOCRIT 35.3 % (37.0-47.0); HEMOGLOBIN 12.2 gm/dL (12.0-15.0); MCH 30.8 pg (26.0-34.0); MCHC 34.5 g/dL (28.0-37.0); MCV 89.1 fL (80.0-100.0); MONOCYTES 6.1 % (1.0-8.0); PLATELET COUNT 206 thou/uL (150-400); POLYS 82.7 % (36.0-66.0); RBC 3.96 mil/uL (4.20-5.00); RDW 13.1 % (10.5-14.5); WBC 10.3 thou/uL (4.0-11.0)
[2017-05-23 06:24] LABS: MANUAL DIFF NO
[2017-05-23 06:30] LABS: CALCIUM 9.4 mg/dL (8.5-10.1); CREATININE 0.5 mg/dL (0.6-1.0); POTASSIUM 3.3 mmol/L (3.5-5.1)
[2017-05-23 07:37] VITALS: BP 184/59
[2017-05-23] MEDS ORDERED: MEDROL DOSPAK21 TA1 PO (09:52)
[2017-05-23] MEDS ORDERED: AZITHROMYCIN 2250 MG PO (09:52)
[2017-05-23 10:02] VITALS: BP 184/59
[2017-05-23 11:17] VITALS: BP 181/48
== END 2017-05-23 15:47 | disposition home health service (06) | DRG 189 ==
LOC: ER 23:12 → EROBS 05-21 01:47 → 3W 05-21 03:08 → ENTRNSPT 05-23 15:39 → 3W 05-23 15:47 → CMPTRNSPT 05-23 15:49
PROVIDERS: Emergency Medicine; Family Medicine
DX: J96.21 Acute and chronic respiratory failure with hypoxia (principal); J44.1 Chronic obstructive pulmonary disease with (acute) exacerbation; E87.1 Hypo-osmolality and hyponatremia; F41.9 Anxiety disorder, unspecified; I10 Essential (primary) hypertension; M19.90 Unspecified osteoarthritis, unspecified site; H40.10X0 Unspecified open-angle glaucoma, stage unspecified; E83.41 Hypermagnesemia; E87.6 Hypokalemia; E03.9 Hypothyroidism, unspecified; H54.40 Blindness, one eye, unspecified eye; J96.22 Acute and chronic respiratory failure with hypercapnia; K59.00 Constipation, unspecified; Z96.1 Presence of intraocular lens; I48.0 Paroxysmal atrial fibrillation; F17.210 Nicotine dependence, cigarettes, uncomplicated; Z98.1 Arthrodesis status; Z98.42 Cataract extraction status, left eye; Z98.41 Cataract extraction status, right eye; Z99.81 Dependence on supplemental oxygen; Z91.041 Radiographic dye allergy status; Z91.048 Other nonmedicinal substance allergy status; Z71.6 Tobacco abuse counseling; Z90.710 Acquired absence of both cervix and uterus; Z79.51 Long term (current) use of inhaled steroids; Z79.82 Long term (current) use of aspirin; Z79.899 Other long term (current) drug therapy; Z88.8 Allergy status to other drugs, medicaments and biological substances

== ENCOUNTER → 2017-05-30 | Outpatient (CLI) | payer OTHER ==
[~2017-05-30] MED LIST changes: +AZITHROMYCIN 2250 MG PO; +MEDROL DOSPAK21 TA1 PO
[2017-05-30 17:02] LABS: CALCIUM 9.9 mg/dL (8.5-10.1); CREATININE 0.6 mg/dL (0.6-1.0); POTASSIUM 3.1 mmol/L (3.5-5.1)
== END ==
LOC: SEN 13:49
PROVIDERS: Emergency Medicine
DX: J44.9 Chronic obstructive pulmonary disease, unspecified (principal)

== ENCOUNTER → 2017-06-13 | Outpatient (CLI) | payer OTHER ==
[~2017-06-13] MED LIST changes: +ALBUTEROL2.5 MG/31 INH; +ASPIR 8181 MG PO; +CENTRUM SILVER1 EAC4 PO; +CLARITIN10 MG PO; +DOXYCYCLINE HYC50 MG PO; +EYE DROPS; +PREDNISONE 10 M10 MG PO
== END ==
LOC: SEN 10:40
DX: E87.1 Hypo-osmolality and hyponatremia (principal); J44.9 Chronic obstructive pulmonary disease, unspecified; E87.6 Hypokalemia

== ENCOUNTER → 2017-08-08 | Outpatient (CLI) | payer OTHER | LOC: SEN 10:11 | DX: J44.9 Chronic obstructive pulmonary disease, unspecified (principal); R53.1 Weakness; R53.83 Other fatigue ==

== ENCOUNTER 2017-08-16 17:41 | Inpatient (IN) | payer OTHER ==
[~2017-08-16] VITALS: Ht 160 cm; Wt 57.3 kg
--- NOTE | ~2017-08-16 | EKG ---
[place] [address] [facility] [place] [address] ELECTROCARDIOGRAM REPORT Name: ALVA REGALADO Room #: [facility]#: [id number] Admission: 08/16/17 Attend Phys: Discharge: Date of : 35 Report #: [id number] THIS REPORT FOR: //name// 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 : 1935 Requested By: Kelby Pack Order Number: [id number] MD: Valdo Goldstein Measurements Intervals [place] Rate: 56 P: 89 PA: 190 QRS: -71 QRSD: 92 T: 53 QT: 450 QTc: 435 Interpretive Statements Sinus rhythm Atrial premature complexes Probable left atrial enlargement Left anterior fascicular block Abnormal R-wave progression, early transition Minimal ST elevation, anterior leads Compared to ECG 05/20/2017 23:37:33 ST (T wave) deviation now present Electronically Signed On 08-16-2017 22:34:40 QUALITY ASSURANCE ADVISOR by Valdo Goldstein [email or web address] <ELECTRONICALLY SIGNED> By: Valdo Goldstein MD 08/16/17 2234 18 18 Valdo Goldstein MD /EPI
--- NOTE | ~2017-08-16 | D ---
[facility] [place] [address] DISCHARGE SUMMARY Name: ALVA REGALADO Room #: 206-P [facility] IN M.R.#: [id number] Admission: 08/16/17 Attend Phys: Placido Lim MD Discharge: 08/20/17 Date of : 35 Report #: [id number] THIS REPORT FOR: //name// CC: Placido Moran DATE OF SERVICE: 08/20/2017 HISTORY OF PRESENT ILLNESS: The patient is an 81-year-old female with history of oxygen-dependent COPD who came to the hospital with COPD exacerbation. Please refer to the admission H and P for details. HOSPITALIZATION COURSE: The patient was hospitalized. She was started on antibiotics and steroids. Elderly Sitter was consulted. The patient had chest x-ray that showed no acute infiltrates. Because of weakness, the patient also had head CT that showed no acute findings. With the treatment, the patient's condition improved. Eventually, steroids were changed to oral. Currently, the patient's condition is acceptable and she feels at her baseline health. The patient will be continued on oral doxycycline and oral taper off steroids. She was advised to have close outpatient followup. The patient will be discharged home on home health. DISCHARGE DIAGNOSES: Chronic obstructive pulmonary disease exacerbation; opfwe-tn-iqmmlik respiratory failure, resolved. SECONDARY DIAGNOSES: Chronic obstructive pulmonary disease, chronic respiratory failure, oxygen dependent on 2-3 liters of oxygen, hypertension, degenerative joint disease, anxiety, essential tremor, hypothyroidism, paroxysmal atrial fibrillation, tobacco abuse. DISCHARGE MEDICATIONS: Please refer to medication reconciliation list. DISPOSITION: The patient is discharged home on home health. FOLLOWUP PLAN: 1. Follow up with the primary care physician in 1-2 weeks. 2. Follow up with the structural engineering project manager in 1-2 weeks. <ELECTRONICALLY SIGNED> By: Shen Sharma MD 08/21/17 1646 1259 1758 Shen Sharma MD /nt
[~2017-08-16 17:41] MED LIST changes: -ALBUTEROL2.5 MG/31 INH; -ASPIR 8181 MG PO; -CENTRUM SILVER1 EAC4 PO; -CLARITIN10 MG PO; -DOXYCYCLINE HYC50 MG PO; -EYE DROPS; -PREDNISONE 10 M10 MG PO
[2017-08-16 17:44] VITALS: BP 179/62
[2017-08-16 19:47] LABS: ABSOLUTE NEUTROPHILS 5.6 thou/uL (1.4-8.2); BASOPHILS 0.5 % (0.0-2.0); EOSINOPHILS 1.7 % (0.0-3.0); HEMATOCRIT 39.7 % (37.0-47.0); HEMOGLOBIN 13.8 gm/dL (12.0-15.0); LYMPHOCYTES 22.9 % (24.0-44.0); MCH 31.4 pg (26.0-34.0); MCHC 34.7 g/dL (28.0-37.0); MCV 90.3 fL (80.0-100.0); PLATELET COUNT 264 thou/uL (150-400); POLYS 66.9 % (36.0-66.0); RDW 13.6 % (10.5-14.5); WBC 8.4 thou/uL (4.0-11.0)
[2017-08-16 19:48] LABS: URINE BILIRUBIN NEGATIVE (Negative); URINE BLOOD NEGATIVE (Negative); URINE CLARITY CLEAR; URINE COLOR YELLOW; URINE GLUCOSE-RANDOM* NEGATIVE (Negative); URINE KETONES NEGATIVE (Negative); URINE LEUKOCYTES-REFLEX NEGATIVE (Negative); URINE NITRITE-REFLEX NEGATIVE (Negative); URINE PROTEIN (DIPSTICK) NEGATIVE (Negative); URINE SPECIFIC GRAVITY 1.015 (1.005-1.035); URINE UROBILINOGEN 0.2 E.U./dl (0.2-1.0)
[2017-08-16 19:58] LABS: AMP/METHAMP Negative (Negative); BARBITURATES POSITIVE (Negative); BENZODIAZEPINES POSITIVE (Negative); COCAINE Negative (Negative); METHADONE Negative (Negative); OPIATES Negative (Negative); PCP Negative (Negative)
[2017-08-16 19:59] LABS: ANION GAP < 0 mmol/L (7-16); BUN 13 mg/dL (7-18); CALCIUM 9.4 mg/dL (8.5-10.1); CHLORIDE 85 mmol/L (98-107); CO2 41 mmol/L (21-32); CREATININE 0.6 mg/dL (0.6-1.0); GLUCOSE 139 mg/dL (74-106); SODIUM 124 mmol/L (136-145)
[2017-08-16 20:09] LABS: ALBUMIN 3.7 g/dL (3.4-5.0); SGOT 31 U/L (15-37); SGPT 30 U/L (30-65); TOTAL BILIRUBIN 0.2 mg/dL (<0.1-1.0); TOTAL PROTEIN 6.6 g/dL (6.4-8.2); TROPONIN-I < 0.04 ng/mL (<0.06)
[2017-08-16] MEDS ORDERED: PREDNISONE 20 M20 MG PO (20:52)
[2017-08-17 05:21] LABS: HEMATOCRIT 36.9 % (37.0-47.0); HEMOGLOBIN 12.8 gm/dL (12.0-15.0); MCH 31.3 pg (26.0-34.0); MCHC 34.7 g/dL (28.0-37.0); MCV 90.3 fL (80.0-100.0); RBC 4.09 mil/uL (4.20-5.00); RDW 13.3 % (10.5-14.5); WBC 6.2 thou/uL (4.0-11.0)
[2017-08-17 05:38] LABS: CALCIUM 8.2 mg/dL (8.5-10.1); CREATININE 0.5 mg/dL (0.6-1.0); POTASSIUM 3.9 mmol/L (3.5-5.1)
[2017-08-17] MEDS ORDERED: ASPIR 8181 MG PO (07:58)
[2017-08-17] MEDS ORDERED: CLARITIN10 MG PO (08:00)
[2017-08-17] MEDS ORDERED: ENALAPRIL MALEA10 M1 PO (08:00)
[2017-08-17] MEDS ORDERED: CENTRUM SILVER1 EAC4 PO (08:02)
[2017-08-17] MEDS ORDERED: ALBUTEROL2.5 MG/31 INH (08:07)
[2017-08-17] MEDS ORDERED: EYE DROPS (08:08)
[2017-08-17 09:38] VITALS: BP 170/54
[2017-08-17 09:58] VITALS: BP 170/54
[2017-08-17 15:39] VITALS: BP 153/51
[2017-08-17 16:43] VITALS: BP 147/43
[2017-08-17 19:58] VITALS: BP 174/47
[2017-08-18 04:54] VITALS: BP 164/52
[2017-08-18 05:27] LABS: CALCIUM 8.6 mg/dL (8.5-10.1); CREATININE 0.5 mg/dL (0.6-1.0); POTASSIUM 3.7 mmol/L (3.5-5.1)
[2017-08-18 09:20] VITALS: BP 185/78
[2017-08-18 19:30] VITALS: BP 178/55
[2017-08-19 03:26] LABS: ABSOLUTE NEUTROPHILS 5.5 thou/uL (1.4-8.2); BASOPHILS 0.2 % (0.0-2.0); EOSINOPHILS 0.3 % (0.0-3.0); HEMATOCRIT 36.3 % (37.0-47.0); HEMOGLOBIN 12.4 gm/dL (12.0-15.0); LYMPHOCYTES 22.4 % (24.0-44.0); MCH 31.4 pg (26.0-34.0); MCHC 34.3 g/dL (28.0-37.0); MCV 91.6 fL (80.0-100.0); MONOCYTES 6.5 % (1.0-8.0); PLATELET COUNT 253 thou/uL (150-400); POLYS 70.6 % (36.0-66.0); RBC 3.96 mil/uL (4.20-5.00); RDW 13.3 % (10.5-14.5); WBC 7.7 thou/uL (4.0-11.0)
[2017-08-19 03:40] VITALS: BP 177/75
[2017-08-19 03:46] LABS: CALCIUM 9.2 mg/dL (8.5-10.1); CREATININE 0.5 mg/dL (0.6-1.0); POTASSIUM 3.6 mmol/L (3.5-5.1)
[2017-08-19 08:09] VITALS: BP 192/84
[2017-08-19 11:53] VITALS: BP 167/64
[2017-08-19 15:54] VITALS: BP 171/60
[2017-08-19 17:19] VITALS: BP 147/47
[2017-08-19 21:00] VITALS: BP 155/38
[2017-08-20 04:20] VITALS: BP 159/62
[2017-08-20] MEDS ORDERED: DOXYCYCLINE HYC50 MG PO (13:03)
[2017-08-20] MEDS ORDERED: PREDNISONE 10 M10 MG PO (13:03)
[2017-08-20 14:12] VITALS: BP 170/65
[2017-08-20 14:45] VITALS: BP 170/65
== END 2017-08-20 16:39 | disposition home health service (06) | DRG 189 ==
LOC: ER 17:41 → 2N 22:27 → EROBS 22:27 → ER 22:27 → 2N 08-17 15:44
PROVIDERS: Emergency Medicine; Internal Medicine Endocrinology, Diabetes & Metabolism; Nurse Practitioner Family
DX: J96.20 Acute and chronic respiratory failure, unspecified whether with hypoxia or hypercapnia (principal); J44.1 Chronic obstructive pulmonary disease with (acute) exacerbation; E87.1 Hypo-osmolality and hyponatremia; F41.9 Anxiety disorder, unspecified; E03.9 Hypothyroidism, unspecified; Z96.1 Presence of intraocular lens; I48.0 Paroxysmal atrial fibrillation; K59.00 Constipation, unspecified; M19.90 Unspecified osteoarthritis, unspecified site; H54.61 Unqualified visual loss, right eye, normal vision left eye; F17.210 Nicotine dependence, cigarettes, uncomplicated; R25.1 Tremor, unspecified; I10 Essential (primary) hypertension; Z99.81 Dependence on supplemental oxygen; Z79.899 Other long term (current) drug therapy; Z91.041 Radiographic dye allergy status; Z98.42 Cataract extraction status, left eye; Z98.41 Cataract extraction status, right eye; Z88.8 Allergy status to other drugs, medicaments and biological substances; Z91.018 Allergy to other foods; Z71.6 Tobacco abuse counseling
CPT/HCPCS: 10194

== ENCOUNTER → 2017-09-04 | Outpatient (CLI) | payer OTHER ==
[~2017-09-04] MED LIST changes: +ALBUTEROL2.5 MG/31 INH; +ASPIR 8181 MG PO; +CENTRUM SILVER1 EAC4 PO; +CLARITIN10 MG PO; +DOXYCYCLINE HYC50 MG PO; +EYE DROPS; +PREDNISONE 10 M10 MG PO
== END ==
LOC: RAD 09:55
DX: J44.9 Chronic obstructive pulmonary disease, unspecified (principal); J84.10 Pulmonary fibrosis, unspecified

== ENCOUNTER → 2017-09-05 | Outpatient (CLI) | payer OTHER ==
[~2017-09-05] VITALS: Ht 157.5 cm; Wt 54.4 kg
[2017-09-05 13:38] VITALS: BP 153/56
[2017-09-05 13:48] VITALS: BP 137/51
[2017-09-05 14:49] LABS: ABSOLUTE NEUTROPHILS 6.7 thou/uL (1.4-8.2); BASOPHILS 0.6 % (0.0-2.0); EOSINOPHILS 0.6 % (0.0-3.0); HEMATOCRIT 40.5 % (37.0-47.0); HEMOGLOBIN 13.8 gm/dL (12.0-15.0); MCH 31.3 pg (26.0-34.0); MONOCYTES 3.7 % (1.0-8.0); PLATELET COUNT 259 thou/uL (150-400); POLYS 83.1 % (36.0-66.0); RDW 13.3 % (10.5-14.5); WBC 8.1 thou/uL (4.0-11.0)
[2017-09-05 15:05] LABS: ALBUMIN 3.5 g/dL (3.4-5.0); CALCIUM 10.2 mg/dL (8.5-10.1); CREATININE 0.7 mg/dL (0.6-1.0); TOTAL BILIRUBIN 0.4 mg/dL (<0.1-1.0); TOTAL PROTEIN 6.5 g/dL (6.4-8.2)
== END ==
LOC: SEN 10:56
PROVIDERS: Nurse Practitioner Family
DX: I50.9 Heart failure, unspecified (principal); J44.9 Chronic obstructive pulmonary disease, unspecified; K59.00 Constipation, unspecified; E87.1 Hypo-osmolality and hyponatremia

== ENCOUNTER → 2017-09-26 | Outpatient (CLI) | payer OTHER ==
[~2017-09-26] VITALS: Ht 160 cm; Wt 54.9 kg
[2017-09-26 14:26] VITALS: BP 121/82
[2017-09-26 16:46] LABS: HEMATOCRIT 40.8 % (37.0-47.0); HEMOGLOBIN 14.1 gm/dL (12.0-15.0); MCH 31.4 pg (26.0-34.0); MCHC 34.7 g/dL (28.0-37.0); MCV 90.4 fL (80.0-100.0); RBC 4.51 mil/uL (4.20-5.00); RDW 13.1 % (10.5-14.5); WBC 7.1 thou/uL (4.0-11.0)
[2017-09-26 17:06] LABS: ALBUMIN 3.4 g/dL (3.4-5.0); CALCIUM 9.8 mg/dL (8.5-10.1); CREATININE 0.6 mg/dL (0.6-1.0); TOTAL BILIRUBIN 0.3 mg/dL (<0.1-1.0); TOTAL PROTEIN 6.3 g/dL (6.4-8.2)
== END ==
LOC: SEN 10:57
PROVIDERS: Emergency Medicine
DX: J44.9 Chronic obstructive pulmonary disease, unspecified (principal); E87.1 Hypo-osmolality and hyponatremia